=== PATIENT | female | born 1980 | race Caucasian/White ===

== ENCOUNTER 2018-01-24 06:49 | Day surgery (SDC) | payer BC ==
[~2018-01-24] VITALS: Ht 180.3 cm; Wt 85.7 kg
[~2018-01-24 06:49] MED LIST: AMOXICILLIN500 M1 PO; NORCO 5-325 TA1 EACH PO
[2018-01-24 07:30] VITALS: BP 121/67
[2018-01-24 07:30] LABS: HEMATOCRIT 43.2 % (36.0-46.0); HEMOGLOBIN 15.3 G/DL (11.9-15.5); MCH 32.8 PG (29.0-34.0); MCHC 35.4 G/DL (30.0-36.0); MCV 92.7 FL (83-99); PLATELET COUNT 169 K/uL (156-360); RBC DIS.WIDTH-CV 11.9 % (11.8-14.6); RBC DIS.WIDTH-SD 41.1 % (39-53); RED BLOOD COUNT 4.66 M/uL (3.80-5.20); WHITE BLOOD COUNT 4.9 K/uL (4.1-10.2)
[2018-01-24 07:45] VITALS: BP 121/67
[2018-01-24] MEDS ORDERED: IBUPROFEN800 MG PO (11:02)
[2018-01-24] MEDS ORDERED: ENDOCET 5-3251 EACH PO (11:02)
[2018-01-24 11:41] VITALS: BP 141/69
[2018-01-24 12:40] VITALS: BP 121/64
== END 2018-01-24 12:49 | disposition home or self-care (01) ==
LOC: SDC 06:49
PROVIDERS: Obstetrics & Gynecology
PROC: 0UT74ZZ Resection of Bilateral Fallopian Tubes, Percutaneous Endoscopic Approach (ICD-10-PCS; principal; 2018-01-24)
DX: Z30.2 Encounter for sterilization (principal); N83.8 Other noninflammatory disorders of ovary, fallopian tube and broad ligament; L40.9 Psoriasis, unspecified; F17.200 Nicotine dependence, unspecified, uncomplicated
CPT/HCPCS: 81025; 85027; 86850; 86900; 86901; 88302; J0131; J1100; J1885; J2250; J2405; J2710; J3010; J7643